=== PATIENT | male | born 1995 | race Two or more races ===

== ENCOUNTER 2017-10-06 20:12 | Emergency (ER) | payer BC ==
--- NOTE | 2017-10-06 21:06 | RAD ---
Indication: Left great toe injury. 3 views of left great toe demonstrates a fracture through the distal tuft of the distal phalanx of the great toe without significant displacement. IMPRESSION: Fracture of the distal tuft of the distal phalanx of the great toe.
--- NOTE | 2017-10-06 21:34 | ED ---
Lower Extremity <Sincere Tripathi - Last Filed: 10/06/17 23:44> - HPI Summary HPI Summary: 22 male presents to ER with complaints of dropping a 45 pound weight on his left great toe just prior to arrival. Patient states he was at the gym and actually fell. States the nail was off and patient remove the nail at home. States it is still bleeding mildly. Random blood thinners. No other trauma or injury. Admits to swelling. Is able to walk on heel of left foot and no medications prior to arrival. Denies numbness/tingling. - History of Current Complaint Hx Obtained From: Patient Mechanism Of Injury: Direct Blow Onset of Pain: Hours Onset/Duration: Still Present Severity Initially: Severe Severity Currently: Moderate Pain Intensity: 7 Pain Scale Used: 0-10 Numeric Timing: Constant Location: Is Discrete @ - left great toe Character Of Pain: Throbbing Associated Signs And Symptoms: Positive: Swelling Aggravating Factor(s): Other - palpation Alleviating Factor(s): Nothing Able to Bear Weight: Yes <Kat Garcia - Last Filed: 10/07/17 00:03> - History of Current Complaint Chief Complaint: EDExtremityLower Stated Complaint: LT FOOT INJURY Time Seen by Provider: 10/06/17 20:21 - Allergies/Home Medications Allergies/Adverse Reactions: Allergies Allergy/AdvReac Type Severity Reaction Status Date / Time No Known Allergies Allergy Unverified 01/31/14 11:41 PMH/Surg Hx/FS Hx/Imm Hx Endocrine/Hematology History: Denies: Hx Anticoagulant Therapy, Hx Diabetes Cardiovascular History: Denies: Hx Pacemaker/ICD Sensory History: Denies: Hx Hearing Aid Psychiatric History: Denies: Hx Panic Disorder - Surgical History Surgery Procedure, Year, and Place: none - Immunization History Immunizations Up to Date: Yes Infectious Disease History: No Infectious Disease History: Denies: Traveled Outside the [place] in Last 30 Days - Family History Known Family History: Negative: Diabetes - Social History Alcohol Use: None Substance Use Type: Reports: None Smoking Status (MU): Never Smoked Tobacco <Kat Garcia - Last Filed: 10/07/17 00:03> Review of Systems Constitutional: Negative Cardiovascular: Negative Respiratory: Negative Positive: Arthralgia, Decreased ROM, Edema Positive: Other - laceration, nail off Neurological: Negative All Other Systems Reviewed And Are Negative: Yes <Kat Garcia - Last Filed: 10/07/17 00:03> Physical Exam Vital Signs On Initial Exam: Initial Vitals Temp Pulse Resp BP Pulse Ox 36.6 C 91 16 117/81 100 10/06/17 20:13 10/06/17 20:13 10/06/17 20:13 10/06/17 20:13 10/06/17 20:13 <Sincere Tripathi - Last Filed: 10/06/17 23:44> Triage Information Reviewed: Yes Vital Signs On Initial Exam: Initial Vitals Temp Pulse Resp BP Pulse Ox 97.9 F 91 16 117/81 100 10/06/17 20:13 10/06/17 20:13 10/06/17 20:13 10/06/17 20:13 10/06/17 20:13 Vital Signs Reviewed: Yes Appearance: Positive: Well-Appearing, No Pain Distress, Well-Nourished Skin: Positive: Warm, Skin Color Reflects Adequate Perfusion, Dry, Other - nail completely removed and no longer attached, patient removed prior to visit, minimal oozing bleeding, lacerated/crush injury to distal tuft of left great toe , rest of toes/foot exam normal Head/Face: Positive: Normal Head/Face Inspection Neck: Positive: Supple Respiratory/Lung Sounds: Positive: Clear to Auscultation, Breath Sounds Present. Negative: Decreased Breath Sounds, Rales, Rhonchi, Wheezes Cardiovascular: Positive: Normal, RRR, Pulses are Symmetrical in both Upper and Lower Extremities - 2+ pedal. Negative: Murmur, Rub Musculoskeletal: Positive: Strength/ROM Intact, Interruption @ - obvious deformity of left great toe, Pain @ - left distal great toe, Edema Left - great toe. Negative: Limited @ Neurological: Positive: Normal, Sensory/Motor Intact, Alert, Oriented to Person Place, Time, CN Intact II-III, Reflexes Intact, NV Bundle Intact Distally, Normal Gait <Kat Garcia - Last Filed: 10/07/17 00:03> Procedures - Laceration/Wound Repair 1 Location: Other - left great toe tuft at nail bed Description: Irregular - crush injury at nail bed Anesthesia: Digital, 1.0%, Lido Length, Depth and Shape: multiple 3-4 linear lacs approximatel .5cm in depth both lateral and medial to nail bed and at distal tuft at nail bed Betadine Prep?: Yes Irrigated w/ Saline (ccs): 500 Laceration/Wound Explored: clean Closure: Single Layer Debridement: minimal Suture Type: Prolene - 30 Number of Sutures: 5 Sterile Dressing Applied?: Yes - xeroform, telfa, kerlex, coban, procedure was preformed by Dr Tripathi <Kat Garcia - Last Filed: 10/07/17 00:03> Diagnostics - Vital Signs Vital Signs Temp Pulse Resp BP Pulse Ox 10/06/17 20:13 36.6 C 91 16 117/81 100 <Sincere Tripathi - Last Filed: 10/06/17 23:44> - Vital Signs Vital Signs Temp Pulse Resp BP Pulse Ox 10/06/17 20:13 97.9 F 91 16 117/81 100 - Radiology left great toe Xray Interpretation: Positive (See Comments) - : Fracture of the distal tuft of the distal phalanx of the great toe. Radiology Interpretation Completed By: Radiologist <Kat Garcia - Last Filed: 10/07/17 00:03> Lower Extremity Course/Dx <Sincere Tripathi - Last Filed: 10/06/17 23:44> - Course Course Of Treatment: wound was irrigated and soaked thoroughly. xray obtained and showed distal tuft fracture. patient as given a digital block using sterile procedure. tolerated procedure well. 5 sutures were placed along with foil applied to cuticle/nail bed to keep open as nail was removed. given antibiotics for open fracture, dressed with xeroform, kerlex and coban. given orthoshoe and crutches. toradol for pain. continue pain meds at home, norco. RICE and follow up ortho tomorrow. Procedure (sutures) was completed by Dr Tripathi. Tetanus was already UTD. - Diagnoses Differential Diagnosis/HQI/PQRI: Positive: Fracture (Closed), Fracture (Open), Other - laceration - Physician Notifications Discussed Care Of Patient With: Dr Tripathi <Kat Garcia - Last Filed: 10/07/17 00:03> - Diagnoses Provider Diagnoses: Open fracture of toe, Laceration, Crush injury of toe Discharge - Billing Disposition and Condition Condition: STABLE Disposition: Home <Sincere Tripathi - Last Filed: 10/06/17 23:44> - Sign-Out/Discharge Documenting (check all that apply): Discharge/Admit/Transfer - Billing Disposition and Condition Condition: STABLE Disposition: Home <Kat Garcia - Last Filed: 10/07/17 00:03> - Discharge Plan Condition: Stable Disposition: HOME Prescriptions: Clindamycin Cap(NF) [Clindamycin Cap 300 mg Cap(NF)] 300 mg PO QID #40 cap HYDROcodone/ACETAMIN 5-325 MG* [Avalon 5-325 TAB*] 1 tab PO Q4H PRN #4 tab MDD 2 PRN Reason: Pain Patient Education Materials: Care For Your Stitches (DC), Toe Fracture (ED) Referrals: Hawk Lamas MD [Medical Doctor] - Eleazar English MD [Primary Care Provider] - Additional Instructions: make an appointment to follow up with ortho for further evaluation, tomorrow morning. keep clean and dry. do not remove dressing until seen by orthopedics refrain from weight bearing, use crutches and brace. rest, ice and elevate. ibuprofen/tylenol for pain and inflammation, as needed, with food. take prescribed antibiotic as directed with food, until entire dose is finished. recommend probiotic in between antibiotic dose, once daily and german yogurt to replenish normal jayme if symptoms worsen or new symptoms develop please seek medical attention promptly.
[2017-10-06] MEDS ORDERED: Ketorolac INJ* 60 MG/2 ML VIAL IM ONE (22:04)
[2017-10-06] MEDS ORDERED: Cephalexin SUSP* 250 MG/5 ML ORAL.SUSP 100 ML BTL PO ONE (22:05)
[2017-10-06] MEDS ORDERED: Lidocaine 1%* 5 ML VIAL ONE (22:31)
[2017-10-06] MEDS ORDERED: Clindamycin CAP* 150 MG PO ONE (23:27)
[2017-10-06] MEDS ORDERED: HYDROcodone/ACETAMIN 5-325 MG* 1 TAB PO ONE (23:29)
[2017-10-06 23:46] VITALS: BP 114/68
== END 2017-10-06 23:44 | disposition home or self-care (01) ==
LOC: ED 20:12
DX: S97.112A Crushing injury of left great toe, initial encounter (principal); S92.422B Displaced fracture of distal phalanx of left great toe, initial encounter for open fracture; W20.8XXA Other cause of strike by thrown, projected or falling object, initial encounter; Y93.B3 Activity, free weights; Y92.89 Other specified places as the place of occurrence of the external cause
CPT/HCPCS: 12001; 96372; 99282; A9270-GY; J1885